=== PATIENT | female | born 1990 | race Caucasian/White ===

== ENCOUNTER 2017-01-30 19:50 | Emergency (ER) | payer OTHER ==
[~2017-01-30] VITALS: Ht 157.5 cm; Wt 70.3 kg
[2017-01-30 19:57] VITALS: BP 138/89
--- NOTE | 2017-01-30 21:16 | ED INFLUENZA/URI COMPLAINT ---
History of Present Illness General Chief Complaint: General Adult Stated Complaint: HEADACHE/FEVERISH Source: patient Exam Limitations: no limitations Vital Signs & Intake/Output Vital Signs & Intake/Output Vital Signs Date Time Temp Pulse Resp B/P Pulse O2 O2 Flow FiO2 Ox Delivery Rate 01/31 2124 97 Room Air 01/30 1957 97.9 94 18 138/89 97 Room Air Allergies Coded Allergies: MDX - No Known Drug Allergies - Nkd (NO KNOWN DRUG ALLERGIES - NKDA) (11/29/13) Reconcile Medications Azithromycin (Zithromax) 500 MG TABLET 1 TAB PO DAILY SINUSITIS Ketorolac Tromethamine 10 MG TABLET 1 TAB PO TID PRN PAIN RECEIVED IM IN ER Methylprednisolone. (Medrol) 4 MG TAB.DS.PK 1 DP PO AD INFLAMMATION 6 on day 1 then reduce by one tablet daily until gone Mometasone Furoate (Nasonex) 50 MCG SPRAY.PUMP 2 SPRAY NASB DAILY CONGESTION Norethindrone-E.estradiol-Iron (Lo Loestrin Fe 1-10 Tablet) 1MG-10(24) TABLET 1 TAB PO DAILY CONTROL (Reported) Triage Note: PT COMPLAINS OF HEADACHE SORE THROAT INTERMITTANT FEVERS AND ACHEY ALL OVER SINCE SUNDAY. Triage Nurses Notes Reviewed? yes Onset: Gradual Duration: getting worse Timing: recent history Severity: severe Severity Numbers: 7 : No Patient currently breastfeeds: No HPI: Patient is a 26-year-old female who presents emergency room with a four-day history of gradual onset of not feeling well body aches joint pain fevers and head congestion. Patient does work at a daycare center. She also developed a 1 day history of sore throat and left ear pain. Hapn-bok-tjtuove medications and a call has not improved symptoms Patient does complain of mild neck pain and headaches. Patient can tolerate by mouth however it is painful. Denies any chest pain cough shortness of breath abdominal pain rash Past History Travel History Traveled to [place] past 21 day No Medical History Any Pertinent Medical History? see below for history Neurological: NONE EENT: NONE Cardiovascular: NONE Respiratory: asthma Gastrointestinal: NONE Hepatic: NONE Renal: NONE Musculoskeletal: NONE Psychiatric: NONE Endocrine: NONE Blood Disorders: anemia Cancer(s): NONE [employer]/Reproductive: NONE Surgical History Surgical History: non-contributory Psychosocial History What is your primary language Belarusian Tobacco Use: Never used ETOH Use: denies use Illicit Drug Use: denies illicit drug use Family History Hx Contributory? No Review of Systems Review of Systems Constitutional: Reports: see HPI, chills, fever. EENTM: Reports: see HPI, nasal congestion, throat pain. Respiratory: Reports: see HPI. Denies: cough. Cardiovascular: Reports: no symptoms. GI: Reports: no symptoms. Genitourinary: Reports: no symptoms. Musculoskeletal: Reports: back pain, muscle pain, neck pain. Skin: Reports: see HPI. Neurological/Psychological: Reports: no symptoms. Hematologic/Endocrine: Reports: no symptoms. Immunologic/Allergic: Reports: no symptoms. All Other Systems: Reviewed and Negative Physical Exam Physical Exam General Appearance: no apparent distress, alert, comfortable Ears, Nose, Throat: moist mucous membrane, hearing grossly normal, Tympanic normal, pharynx normal, nasal congestion Comments: Well-developed well-nourished person in no acute distress HEENT:extraocular motion intact, no nystagmus. Pupils equally round and reactive to light and accommodation. Nose is atraumatic. External auditory canal and Tympanic membranes clear. Pharynx normal. No swelling or edema. Left maxilla point tenderness noted of sinus nasal congestion noted Neck: Supple, bilateral anterior cervical lymphadenopathy, left lateral muscular point tenderness noted, mild decreased active range of motion noted Back: Nontender, no CVA tenderness. Cardiovascular: Regular rate and rhythms no murmurs rubs or gallops, normal JVP Respiratory: Chest nontender. No respiratory distress.breath sounds clear to auscultation bilaterally Abdomen: Soft, nontender nondistended, no appreciable organomegaly. Normal bowel sounds. No ascites Extremity: No edema, no calf tenderness to palpation, normal and equal pulses. Neuro: Alert oriented x3, motor sensory normal, cranial nerves II through XII grossly intact. Negative Brudzinski and negative Kernig sign Skin: No appreciable rash on exposed skin, skin is warm and dry. Psych: Mood and affect is normal, memory and judgment is normal. Core Measures Severe Sepsis Present: No Septic Shock Present: No Progress Differential Diagnosis: influenza, meningitis, neutropenia, otitis, pneumonia, pharyngitis, sinusitis Plan of Care: Orders Procedure Date/time Status RAPID VIRAL INFLUENZA A 01/31 2000 Complete THROAT CULTURE W/QUICK STREP 01/31 2000 Active Microbiology 01/30 2002 NASOPHARYN: Influenza Virus A & B Rapid Smear - COMP Patient currently was afebrile nontoxic appearing and has no suspicion of meningitis. Patient had negative rapid strep negative influenza Patient was strongly advised to follow-up with discharge INSTRUCTIONS and plan and she had no questions (FORREST MARTIN) Initial ED EKG: none Departure Departure Disposition: HOME OR SELF CARE Condition: Stable Clinical Impression Primary Impression: Pharyngitis Secondary Impressions: Sinusitis, Viral syndrome Referrals: PATIENT HAS NO PRIMARY CARE DR (PCP/Family) Additional Instructions: As discussed begin the prescription at ketorolac for pain and inflammation. Begin a prescription of azithromycin as directed for the full course. Begin the prescription Nasonex for congestion begin the prescription of Nasonex for congestion. Begin the prescription of Magic mouthwash for sore throat and Medrol Dosepak for inflammation. Prescriptions are waiting at [facility]. Begin drinking plenty of water for hydration and begin [id number] Tylenol for fevers and soer-khc-ednbqih Sudafed for congestion. If no better in 2 days follow-up with primary care doctor Departure Forms: Customer Survey General Discharge Information Prescriptions: Current Visit Scripts Methylprednisolone. (Medrol) 1 DP PO AD #1 DP 6 on day 1 then reduce by one tablet daily until gone Azithromycin (Zithromax) 1 TAB PO DAILY #5 TAB Mometasone Furoate (Nasonex) 2 SPRAY NASB DAILY #1 INHAL Ketorolac Tromethamine 1 TAB PO TID PRN PAIN #15 TAB RECEIVED IM IN ER
[2017-01-30] MEDS ORDERED: LO LOESTRIN FE1 EACH PO (21:24)
[2017-01-30] MEDS ORDERED: KETOROLAC TROME10 M1 PO (21:36)
[2017-01-30] MEDS ORDERED: MEDROL4 M2 PO (21:36)
[2017-01-30] MEDS ORDERED: ZITHROMAX500 M2 PO (21:36)
[2017-01-30] MEDS ORDERED: NASONEX17 GM NASB (21:36)
== END 2017-01-30 22:05 ==
LOC: ERH 19:50
DX: J32.9 Chronic sinusitis, unspecified (principal); B34.9 Viral infection, unspecified
CPT/HCPCS: 87804; 87804-59; 96372; J1885